=== PATIENT | male | born 1965 | race Caucasian/White ===

== ENCOUNTER 2021-12-05 08:35 | Emergency (ER) | payer OTHER ==
[~2021-12-05] VITALS: Ht 170.2 cm; Wt 72.6 kg
[2021-12-05] MEDS ORDERED: IBUPROFEN200 M1 PO (08:50)
[2021-12-05] MEDS ORDERED: NAPROSYN500 MG PO (09:58)
[2021-12-05] MEDS ORDERED: FLEXERIL PO (09:58)
[2021-12-05 10:14] VITALS: BP 125/76
== END 2021-12-05 10:15 | disposition home or self-care (01) ==
LOC: ER 08:35
DX: M54.59 Other low back pain (principal); N20.0 Calculus of kidney; Z79.899 Other long term (current) drug therapy